=== PATIENT | male | born 1990 | race Hispanic/Latino ===

== ENCOUNTER 2018-08-17 14:28 | Emergency (ER) | payer OTHER ==
[2018-08-17 14:56] VITALS: TEMP 98.4; O2SAT 100
[2018-08-17] MEDS ORDERED: Sodium Chloride 0.9% 1,000 ML IV STA (15:15)
--- NOTE | 2018-08-17 15:25 | ED PDOC ---
Syncope/Near Syncope/Dizziness Time Seen by Provider: 08/17/18 14:59 Chief Complaint (Nursing): Dizziness/Lightheaded Chief Complaint (Provider): Dizziness, lightheadedness History Per: Patient History/Exam Limitations: no limitations Onset/Duration Of Symptoms: Days (5), Intermittent Episodes Current Symptoms Are (Timing): Still Present Possible Causative Factor(s): Vertigo Additional History Per: Patient Additional Complaint(s): 28yo male, otherwise well, comes to ER reporting nausea, dizziness and lightheadedness x 5 days. Patient reports associated tingling sensation to his hand and feet a well as palpitations. Patient reports a history of SVT but states he had a cardiac ablation, with resolution of symptoms. Of note, patient states 3 mo ago, he had a head injury for which he had a CT Head done (reported normal.) Patient states ever since the incident "something is not right" and is concerned regarding his head. Patient denies any fever, chills, neck pain, weakness, numbness, vision changes, chest pain, shortness of breath, abdominal pain, nausea, vomiting, diarrhea or urinary symptoms. He has not taken anything for his symptoms. Dizziness is like room spinning. Happens on movement. When laying still it is not present. No other complaints. PMD: In ON LICENSE OF [facility] Past Medical History Reviewed: Historical Data, Nursing Documentation, Vital Signs Vital Signs: Last Vital Signs Temp 98.4 F 08/17/18 14:50 Pulse 68 08/17/18 14:50 Resp 16 08/17/18 14:50 BP 129/77 08/17/18 14:50 Pulse Ox 100 08/17/18 14:50 - Medical History Other PMH: svt - Surgical History Surgical History: No Surg Hx - Family History Family History: States: No Known Family Hx - Home Medications Home Medications: Ambulatory Orders Medication Instructions Recorded Meclizine [Antivert] 12.5 mg PO BID PRN 5 Days tab 08/17/18 - Allergies Allergies/Adverse Reactions: Allergies Allergy/AdvReac Type Severity Reaction Status Date / Time grass pollen Allergy CONGESTION Verified 08/17/18 14:49 Review of Systems ROS Statement: Except As Marked, All Systems Reviewed And Found Negative Constitutional: Negative for: Fever, Chills Eyes: Negative for: Vision Change Cardiovascular: Positive for: Light Headedness. Negative for: Chest Pain Respiratory: Negative for: Shortness of Breath Gastrointestinal: Negative for: Vomiting, Abdominal Pain Genitourinary Male: Negative for: Dysuria Musculoskeletal: Negative for: Neck Pain, Back Pain Neurological: Positive for: Dizziness. Negative for: Weakness, Numbness Physical Exam - Reviewed Nursing Documentation Reviewed: Yes Vital Signs Reviewed: Yes - Physical Exam Appears: Positive for: Non-toxic, No Acute Distress Head Exam: Positive for: ATRAUMATIC, NORMAL INSPECTION, NORMOCEPHALIC Skin: Positive for: Normal Color, Warm, DRY Eye Exam: Positive for: EOMI, PERRL, Nystagmus (mild horizontal) ENT: Positive for: Normal ENT Inspection Neck: Positive for: Normal, Painless ROM, Supple Cardiovascular/Chest: Positive for: Regular Rate, Rhythm Respiratory: Positive for: CNT, Normal Breath Sounds Gastrointestinal/Abdominal: Positive for: Normal Exam, Soft. Negative for: Tenderness Back: Positive for: Normal Inspection. Negative for: L CVA Tenderness, R CVA Tenderness, Vertebral Tenderness Extremity: Positive for: Normal ROM. 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 Negative for: Motor/Sensory Deficits, Aphasia, Facial Droop - Laboratory Results Result Diagrams: 08/17/18 15:58 08/17/18 15:58 Interpretation Of Abn Labs: no acute - ECG ECG: Positive for: Interpreted By Me, Viewed By Me ECG Rhythm: Positive for: Normal QRS, Normal ST Segment, Sinus Rhythm O2 Sat by Pulse Oximetry: 100 (RA) Pulse Ox Interpretation: Normal - CT Scan/US head Other Rad Studies (CT/US): Read By Radiologist Other Rad Interpretation: no acute - Progress ED Course And Treament: 1744: Stable. AAOx3. Pain free. Tolerated po. Fu with pcp. Medical Decision Making Medical Decision Making: Impression: Dizziness, lightheadedness Plan: * Labs * CT Head * IV Fluids * Reglan 10mg IV 1628 CT Head FINDINGS: HEMORRHAGE: No intracranial hemorrhage. BRAIN: No mass effect or edema. No atrophy or chronic microvascular ischemic changes. VENTRICLES: Unremarkable. No hydrocephalus. CALVARIUM: Unremarkable. PARANASAL SINUSES: Unremarkable as visualized. No significant inflammatory changes. MASTOID AIR CELLS: Unremarkable as visualized. No inflammatory changes. OTHER FINDINGS: None. IMPRESSION: Normal CT of the Head. No intracranial mass, hemorrhage or evidence of acute infarct. Scribe Attestation: Documented by Maci Betts, acting as a scribe for Carl Luther MD. Provider Scribe Attestation: All medical record entries made by the Scribe were at my direction and personally dictated by me. I have reviewed the chart and agree that the record accurately reflects my personal performance of the history, physical exam, medical decision making, and the department course for this patient. I have also personally directed, reviewed, and agree with the discharge instructions and disposition. Disposition - Clinical Impression Clinical Impression: Dizziness - Patient ED Disposition Is Patient to be Admitted: No Counseled Patient/Family Regarding: Studies Performed, Diagnosis, Need For Followup, Rx Given - Disposition Referrals: Chantelle Robison MD [Medical Doctor] - 08/18/18 [facility] [Outside] - 08/18/18 Disposition: Routine/Home Disposition Time: 17:46 Condition: STABLE Additional Instructions: Return if not better in 3 days. Prescriptions: Meclizine [Antivert] 12.5 mg PO BID PRN 5 Days tab PRN Reason: Dizziness Instructions: Vertigo (a Type of Dizziness) Forms: [employer] (Japanese), [facility] ED School/Work Excuse
--- NOTE | 2018-08-17 16:00 | CT ---
Date of service: 08/17/2018 PROCEDURE: CT HEAD WITHOUT CONTRAST. HISTORY: headache COMPARISON: None available. TECHNIQUE: Axial computed tomography images were obtained through the head/brain without intravenous contrast. Radiation dose: Total exam DLP = 820.65 mGy-cm. This CT exam was performed using one or more of the following dose reduction techniques: Automated exposure control, adjustment of the mA and/or kV according to patient size, and/or use of iterative reconstruction technique. FINDINGS: HEMORRHAGE: No intracranial hemorrhage. BRAIN: No mass effect or edema. No atrophy or chronic microvascular ischemic changes. VENTRICLES: Unremarkable. No hydrocephalus. CALVARIUM: Unremarkable. PARANASAL SINUSES: Unremarkable as visualized. No significant inflammatory changes. MASTOID AIR CELLS: Unremarkable as visualized. No inflammatory changes. OTHER FINDINGS: None. IMPRESSION: Normal CT of the Head. No intracranial mass, hemorrhage or evidence of acute infarct.
[2018-08-17 16:17] LABS: ALB/GLOB RATIO 1.7 (1.0-2.1); ALT/SGPT 35 U/L (21-72); AST/SGOT 41 U/L (17-59); BLOOD UREA NITROGEN 20 mg/dl (9-20); CALCIUM 9.8 mg/dL (8.4-10.2); GFR NON-AFRICAN AMERICAN > 60
[2018-08-17 17:05] LABS: HEMOGLOBIN 16.6 g/dL (12.0-18.0); MEAN CELL VOLUME 85.7 fl (80.0-94.0); MEAN CORPUSCULAR HEMOGLOBIN 30.5 pg (27.0-31.0); MEAN CORPUSCULAR HGB CONC 35.5 g/dL (33.0-37.0); MEAN PLATELET VOLUME 7.4 fl (7.2-11.7); MONO % 9.2 % (0.0-10.0); RBC 5.46 Mil/uL (4.40-5.90); RED CELL DISTRIBUTION WIDTH 12.6 % (11.5-14.5); WHITE BLOOD COUNT 7.7 K/uL (4.8-10.8)
[2018-08-17 17:06] LABS: BASO # 0.1 K/uL (0.0-0.2); BASO % 0.9 % (0.0-2.0); EOS # 0.1 K/uL (0.0-0.7); EOS % 1.9 % (0.0-4.0); LYMPH # 1.6 K/uL (1.0-4.3); MONO # 0.7 K/uL (0.0-0.8); NEUT # 5.2 K/uL (1.8-7.0); NRBC % 0.1 % (0.0-0.0)
[2018-08-17 18:08] VITALS: BP 126/72; PULSE 70; RESP 18
--- NOTE | 2018-08-18 14:24 | CARD ---
APPROVED REPORT Date of service: 08/17/2018 EKG Measurement Heart [id number] <Conclusion> Sinus bradycardia with sinus arrhythmia Incomplete right bundle branch block Borderline ECG
== END 2018-08-17 17:57 | disposition home or self-care (01) ==
LOC: H.ER 14:28
DX: R42 Dizziness and giddiness (principal); I47.1 Supraventricular tachycardia
CPT/HCPCS: 70450; 80053; 84484; 85025; 93005; 99285; J7030